=== PATIENT | male | born 1975 | race Hispanic/Latino ===

== ENCOUNTER → 2021-07-02 | Outpatient (CLI) | payer BC ==
[~2021-07-02] MED LIST: ESMOLOL HCL 10 MG/ML 10 ML VIAL ONE; LABETALOL 20MG VIAL IV ONE
== END | disposition home or self-care (01) ==
LOC: RAH 14:27
PROVIDERS: ATTEND Neurological Surgery
DX: M50.223 Other cervical disc displacement at C6-C7 level (principal); Z98.1 Arthrodesis status
CPT/HCPCS: 72040